=== PATIENT | male | born 1945 | race Caucasian/White ===

== ENCOUNTER 2017-09-15 17:35 | Emergency (ER) | payer MEDICARE ==
[2017-09-15] MEDS ORDERED: EPINEPHrine SYRINGE 1 MG/10 ML SYRINGE ONE (17:40)
--- NOTE | 2017-09-15 18:03 | PHYS DOC ---
Past History Past Medical History: CAD Adult General Chief Complaint Chief Complaint: CPR/FULL ARREST HPI HPI 72-year-old patient with extensive history of cardio pulmonary problem on home oxygen brought in by EMS because of cardiopulmonary arrest with CPR in progress. Patient was standing at [employer] and suddenly collapsed and family member and friend hold him to do not have a fall. Patient had cardiopulmonary arrest and CPR was started by bystanders about 5-10 minutes prior to arrival of EMS at 1707. EMS was started IO and chest compression with nasal oxygen but patient continued to have asystole. Patient had 4 sets of Epi without any response. Patient arrived at 1735 to ER with dilated and fixed pupils without spontaneous cardiac and respiratory activity with CPR on progress. Review of Systems Review of Systems Unable to obtain Physical Exam Physical Exam Constitutional: CPR in progress HENT: Atraumatic Eyes: Fixed dilated pupils.] Neck: No sign of injury[] Cardiovascular: No cardiac activity without CPR Lungs & Thorax: No respiratory activity Abdomen: Obese, atraumatic Skin: Cyanotic[] Extremities: No sign of injury Neurologic: Unresponsive with CPR in progress EKG EKG [] Radiology/Procedures Radiology/Procedures [] Course & Med Decision Making Course & Med Decision Making Evaluation of patient in ER showed 72-year-old male patient with sudden cardio pulmonary arrest with CPR in progress at arrival to ER with asystole and fixed and dilated pupils. Tried to put the tracheal tube because of lack of instrument it was unsuccessful and LMA was placed and patient was bagging with chest compression. Patient continued to have asystole and no cardiac or pulmonary activity. CPR was stopped at 1747. Patient informed about and, for CPR.. She'll primary care physician Dr. Berman informed at 1817. Point of care BMP showed potassium of 7.0 and blood sugar around 500. Dragon Disclaimer Dragon Disclaimer This electronic medical record was generated, in whole or in part, using a voice recognition dictation system. Departure Departure: Impression: Primary Impression: Cardiopulmonary arrest Disposition: 20 (At 1802) Condition: Referrals: PCP,UNKNOWN (PCP) YOHAN ALCARAZ MD Sep 15, 2017 18:03
== END 2017-09-15 20:07 | disposition expired ==
LOC: ER 17:35
DX: I46.9 Cardiac arrest, cause unspecified (principal); I25.10 Atherosclerotic heart disease of native coronary artery without angina pectoris; Z99.81 Dependence on supplemental oxygen
CPT/HCPCS: 31500; 84484; 92950; 99285; J0171